=== PATIENT | male | born 1990 | race Caucasian/White ===

== ENCOUNTER → 2018-01-25 | Outpatient (CLI) | payer OTHER ==
[2018-01-25 10:41] LABS: HCT (SEDRATE) 46.4 % (39.2-51.8)
== END | disposition home or self-care (01) ==
LOC: CVU 09:27
PROVIDERS: ATTEND Internal Medicine Cardiovascular Disease
DX: I31.9 Disease of pericardium, unspecified (principal); R07.9 Chest pain, unspecified
CPT/HCPCS: 36415; 85651; 86141; 93306